=== PATIENT | female | born 1940 | race Native Hawaiian/Other Pacific Islander ===

== ENCOUNTER 2016-09-23 11:25 | Outpatient (CLI) | payer OTHER ==
[2016-09-23 12:04] LABS: PLATELET COUNT 321 K/uL (152-353)
[2016-09-23 12:12] LABS: SODIUM 141 mmol/L (136-145)
== END 2016-09-23 19:41 | disposition home or self-care (01) ==
LOC: LABW 11:25
PROVIDERS: Internal Medicine
DX: E11.9 Type 2 diabetes mellitus without complications (principal); R82.99 Other abnormal findings in urine
CPT/HCPCS: 36415; 80053; 80061; 81000; 82043; 82570; 83036; 84443; 85027; 87086; 87088

== ENCOUNTER 2017-07-09 18:03 | Outpatient (CLI) | payer OTHER | END 2017-07-09 18:09 | disposition short-term general hospital (02) | LOC: AMB 18:03 | DX: M25.511 Pain in right shoulder (principal); R07.81 Pleurodynia; M25.561 Pain in right knee; W01.0XXA Fall on same level from slipping, tripping and stumbling without subsequent striking against object, initial encounter; Y92.098 Other place in other non-institutional residence as the place of occurrence of the external cause | CPT/HCPCS: A0425; A0429 ==

== ENCOUNTER 2017-07-09 18:25 | Emergency (ER) | payer OTHER ==
[~2017-07-09] VITALS: Ht 162.6 cm; Wt 72.6 kg
== END 2017-07-09 23:52 | disposition short-term general hospital (02) ==
LOC: ED 18:25
DX: S42.291A Other displaced fracture of upper end of right humerus, initial encounter for closed fracture (principal); S80.01XA Contusion of right knee, initial encounter; S40.011A Contusion of right shoulder, initial encounter; W01.0XXA Fall on same level from slipping, tripping and stumbling without subsequent striking against object, initial encounter; Y92.098 Other place in other non-institutional residence as the place of occurrence of the external cause
CPT/HCPCS: 96365; 96372; 96375; 99285; J1885

== ENCOUNTER 2019-03-14 11:07 | Outpatient (CLI) | payer OTHER ==
[2019-03-14 11:53] LABS: PLATELET COUNT 331 K/uL (152-353)
[2019-03-14 12:22] LABS: POTASSIUM 4.1 mmol/L (3.6-5.2)
== END 2019-03-14 20:06 | disposition home or self-care (01) ==
LOC: LABW 11:07
PROVIDERS: Internal Medicine
DX: E11.9 Type 2 diabetes mellitus without complications (principal); E55.9 Vitamin D deficiency, unspecified; R82.998 Other abnormal findings in urine
CPT/HCPCS: 36415; 80053; 80061; 81000; 82043; 82306; 82570; 83036; 84439; 84443; 84550; 85027; 87077; 87086; 87088; 87186

== ENCOUNTER 2020-07-15 12:48 | Outpatient (CLI) | payer OTHER ==
[2020-07-15 13:07] LABS: PLATELET COUNT 319 K/uL (152-353)
[2020-07-15 13:30] LABS: POTASSIUM 3.9 mmol/L (3.6-5.2)
== END 2020-07-15 19:18 | disposition home or self-care (01) ==
LOC: LABW 12:48
PROVIDERS: ATTEND Internal Medicine
DX: E11.9 Type 2 diabetes mellitus without complications (principal); R82.998 Other abnormal findings in urine
CPT/HCPCS: 36415; 80053; 80061; 81000; 82043; 83036; 84439; 84443; 85027; 87077; 87086; 87088; 87186

== ENCOUNTER 2021-12-15 15:09 | Emergency (ER) | payer OTHER ==
[~2021-12-15] VITALS: Ht 157.5 cm; Wt 68.0 kg
[2021-12-15 15:13] VITALS: TEMP 98.3
[2021-12-15 15:30] LABS: PLATELET COUNT 245 K/uL (152-353)
[2021-12-15 15:39] LABS: POTASSIUM 3.1 mmol/L (3.6-5.2)
[2021-12-15 17:49] VITALS: BP 186/77
== END 2021-12-15 19:20 | disposition short-term general hospital (02) ==
LOC: ED 15:09
PROVIDERS: Emergency Medicine Emergency Medical Services
DX: S32.89XA Fracture of other parts of pelvis, initial encounter for closed fracture (principal); W19.XXXA Unspecified fall, initial encounter; Z91.81 History of falling; Y93.89 Activity, other specified; Y92.018 Other place in single-family (private) house as the place of occurrence of the external cause; S32.008A Other fracture of unspecified lumbar vertebra, initial encounter for closed fracture; Z11.52 Encounter for screening for COVID-19; I67.82 Cerebral ischemia; N39.0 Urinary tract infection, site not specified; B96.29 Other Escherichia coli [E. coli] as the cause of diseases classified elsewhere
CPT/HCPCS: 51702; 80053; 81000; 83735; 84484; 85007; 85027; 87040; 87077; 87086; 87088; 87186; 87635; 93005; 96360; 96365; 96375; 99285; J0360; J0696; J2270; J2405; Q9963; U0003